=== PATIENT | female | born 1955 | race Two or more races ===

== ENCOUNTER 2022-10-27 00:04 | Emergency (ER) | payer OTHER ==
[~2022-10-27] VITALS: Ht 162.6 cm; Wt 80.0 kg
[2022-10-27] MEDS ORDERED: ASPirin 325 MG TAB PO ONE (00:30)
[2022-10-27 00:54] LABS: Basophils # (auto) 0.1 10 ^3/uL (0-0.2); Basophils % (auto) 0.8 % (0.0-2.0); Eosinophils # (auto) 0.2 10 ^3/uL (0-0.8); Eosinophils % (auto) 2.2 % (0.0-7.0); Hematocrit 41.7 % (36.0-46.0); Hemoglobin 14.1 g/dL (12.2-16.2); Lymphocytes # (auto) 2.5 10 ^3/uL (0.4-5.4); Lymphocytes % (auto) 33.5 % (10.0-50.0); Mean Corpuscular Hemoglobin 29.8 pg (28.0-32.0); Mean Corpuscular Hgb Conc. 33.9 g/dL (32.0-36.0); Mean Corpuscular Volume 88.1 fL (80.0-100.0); Monocytes # (auto) 0.6 10 ^3/uL (0-1.3); Monocytes % (auto) 7.3 % (0.0-12.0); Neutrophils # (auto) 4.3 10 ^3/uL (1.6-8.6); Neutrophils % (auto) 56.2 % (37.0-80.0); Red Blood Cells 4.73 10^6/uL (4.0-5.20); Red Cell Distribution Width 12.6 % (11.8-14.3); White Blood Cell 7.6 10^3/uL (4.4-10.8)
[2022-10-27 01:01] LABS: Partial Thromboplastin Time 28.2 SEC (24.5-34.5); Prothrombin Time 10.5 sec (9.3-11.8)
[2022-10-27] MEDS ORDERED: IOHEXOL 350 MG/ML 100ML IJ ONE (01:02)
[2022-10-27 01:03] LABS: Albumin 3.6 g/dL (3.4-5.0); BUN/Creatinine Ratio 18.4 (10.0-20.0); Calcium 8.6 mg/dL (8.5-10.1); Magnesium 2.4 mg/dL (1.6-2.6); Potassium 3.4 mmol/L (3.5-5.1)
[2022-10-27 01:06] LABS: Bilirubin, Total 0.6 mg/dL (0.2-1.0)
[2022-10-27 01:30] VITALS: BP 148/71; PULSE 61; RESP 18; TEMP 97.5; O2SAT 96
[2022-10-27] MEDS ORDERED: ACET-6 PO (02:30)
== END 2022-10-27 02:56 | disposition home or self-care (01) ==
LOC: ER 00:04
DX: M54.12 Radiculopathy, cervical region (principal); M54.6 Pain in thoracic spine; M54.50 Low back pain, unspecified; I10 Essential (primary) hypertension; E78.5 Hyperlipidemia, unspecified; Z88.0 Allergy status to penicillin; Z79.1 Long term (current) use of non-steroidal anti-inflammatories (NSAID)
CPT/HCPCS: 36415; 71275; 72125; 80053; 83690; 83735; 83880; 84484; 85025; 85610; 85730; 93005; 99285; Q9967